=== PATIENT | male | born 2000 | race Caucasian/White ===

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

== ENCOUNTER 2022-12-02 19:29 | Emergency (ER) | payer OTHER ==
[~2022-12-02] VITALS: Ht 177.8 cm; Wt 68.0 kg
[~2022-12-02 19:29] MED LIST: KEFLEX500 MG PO; MOTRIN IB200 MG PO
[2022-12-02 19:54] VITALS: BP 140/82
== END 2022-12-02 21:32 | disposition home or self-care (01) ==
LOC: ER 19:29
DX: M25.562 Pain in left knee (principal)
CPT/HCPCS: 73562-LT; 99283-25

== ENCOUNTER 2023-08-23 07:47 | Day surgery (SDC) | payer OTHER ==
[~2023-08-23] VITALS: Ht 180.3 cm; Wt 73.3 kg
--- NOTE | 2023-08-23 10:05 | NUR ---
08/23/23 [email or web address] Yary Scott @09[address] DR [place] AT BEDSIDE PREOPERATIVELY AND TIME OUT COMPLETED PRIOR TO NERVE BLOCK. PT PLACED ON 2L O2 VIA NC. PT TOLERATED PROCEDURE WELL. VSS.
--- NOTE | 2023-08-23 10:29 | NUR ---
08/23/23 1029 Kellie Torres HEAD ON PILLOW, ARMS SECURED ON PADDED ARM BOARDS, KNEE FOAM PLACED BEHIND RIGHT KNEE WHTN FOT DROPPED, LEFT KNEE POST, PADDED WASSERMAN STAND.
--- NOTE | 2023-08-23 12:54 | NUR ---
08/23/23 Juan4 Joyce Gutierrez PT WAS PLACED ON 10L O2 VIA TENT MASK, TITRATED TO 5L AT 99%. ONCE AWAKE PT O2 AT 99% ON RA.
[2023-08-23 13:07] VITALS: BP 126/73
--- NOTE | 2023-08-23 13:44 | NUR ---
08/23/23 1344 Rubén Joseph PT DISCHARGED WITH 2/10 PAIN TO SURGICAL LEG. ENCOURAGED FILLING PRESCRIPTION RIKI. VERBALIZED UNDERSTANDING OF IMPORTANCE OF ICE AND ELEVATION
== END 2023-08-23 13:43 | disposition home or self-care (01) ==
LOC: ORSCSDS 07:47
PROVIDERS: Orthopaedic Surgery Sports Medicine
PROC: 0MRP47Z Replacement of Left Knee Bursa and Ligament with Autologous Tissue Substitute, Percutaneous Endoscopic Approach (ICD-10-PCS; principal; 2023-08-23 09:30)
DX: S83.512A Sprain of anterior cruciate ligament of left knee, initial encounter (principal); M23.322 Other meniscus derangements, posterior horn of medial meniscus, left knee; M23.42 Loose body in knee, left knee; X50.1XXA Overexertion from prolonged static or awkward postures, initial encounter; Y93.67 Activity, basketball
CPT/HCPCS: C1713; J0171; J0690; J1100; J2250; J2405; J2704; J2795; J3010; J7120